=== PATIENT | male | born 1945 | race Caucasian/White ===

== ENCOUNTER 2023-01-18 14:54 | Emergency (ER) | payer MEDICARE ==
[2023-01-18 15:14] VITALS: BP 138/79; PULSE 74
[2023-01-18] MEDS ORDERED: Ketorolac 30 MG/ML SDV IM ONE (15:45)
== END 2023-01-18 17:07 | disposition home or self-care (01) ==
LOC: JP.ED 14:54
DX: M25.562 Pain in left knee (principal); M25.762 Osteophyte, left knee; I10 Essential (primary) hypertension; E78.00 Pure hypercholesterolemia, unspecified; Z79.82 Long term (current) use of aspirin; Z79.899 Other long term (current) drug therapy
CPT/HCPCS: 73560; 73565; 96372; 99283; J1885